=== PATIENT | male | born 1955 | race Caucasian/White ===

== ENCOUNTER 2019-07-13 12:54 | Emergency (ER) | payer OTHER, SELFPAY ==
[2019-07-13 12:55] VITALS: BP 135/101; PULSE 103; RESP 18; TEMP 36.6; O2SAT 96; BMI 43.0
--- NOTE | 2019-07-13 13:04 | XR_ITS ---
WS: [id number] PORTABLE CHEST HISTORY: syncope COMPARISON: 11/02/2015 Chronic interstitial thickening bilaterally. Partial obscuration of the LEFT hemidiaphragm due to ove rlying soft tissue. Stable ill-defined nodule measuring 10 mm in the RIGHT lower lung field. Seen on a prior CT and chest radiograph from 2016 with no progression. No pleural effusion or pneumothorax. Cardiac size: Moderately enlarged cardiac silhouette. Mediastinum/Aorta: Mild atherosclerosis aorta. No osseous abnormality seen. XR/XR chest 1V portable [id number] IMPRESSION: 1. Mild cardiomegaly and stable RIGHT lung nodules since 2016. 2. Partial obscuration of the LEFT lower lobe is thought to be related to over lying soft tissue and portable technique.
--- NOTE | 2019-07-13 13:05 | ECG_ITS ---
Measurements Intervals [place] Rate: 85 P: 66 NY: 152 QRS: 152 QRSD: 106 T: 51 QT: 367 QTc: 437 SINUS RHYTHM INCOMPLETE RIGHT BUNDLE BRANCH BLOCK [90+ ms QRS DURATION, TERMINAL R IN V1/V2, 40+ ms S IN I/aVL/V4/V5/V6] POSSIBLE RIGHT VENTRICULAR HYPERTROPHY [SOME/ALL OF: PROMINENT R IN V1, LATE TR TRANSITION, RAD, GABRIEL, SSS] No previous ECG available for comparison Electronically Signed On 07-13-2019 18:10:23 CDT by Dianne Rodriguez M.D. [id number]
--- NOTE | 2019-07-13 13:06 | W.ED.DIZZY ---
HPI - Dizziness General: Chief Complaint: Dizziness Stated Complaint: ? Time Seen by Provider: 07/13/19 13:02 History of Present Illness: Associated symptoms: Reports syncope Review of Systems General: Reports: 10 or more systems reviewed and unremarkable except in HPI and below Card: Reports: syncope PFSH ED PFSH: Social History Smoking and tobacco status: current every day smoker Physical Exam Const: COMMON NORMALS: oriented x3 and alert HENMT: COMMON NORMALS: normocephalic and head/scalp atraumatic HEAD & SCALP: normocephalic and atraumatic MOUTH: moist mucous membranes not abnormal Neck/C-Spine: COMMON NORMALS: no JVD Resp: COMMON NORMALS: normal respiratory effort, no retractions, no use of accessory muscles and clear to auscultation bilaterally AUSCULTATION: clear to auscultation bilaterally Cardio: COMMON NORMALS: no JVD, regular rate and regular rhythm RATE: regular rate RHYTHM: regular rhythm GI: COMMON NORMALS: normal to inspection, nondistended, normoactive bowel sounds Extremity: COMMON NORMALS: normal to inspection Neuro: COMMON NORMALS: oriented x3 SENSORIUM/ORIENTATION: Yes alert Skin: COMMON NORMALS: no rashes or lesions noted, no wounds, skin turgor normal, no jaundice and no mottling GENERAL SKIN EXAM: no rashes or lesions noted and turgor normal Course Vital Signs: Vital signs: Vital Signs Temperature 97.9 F 07/13/19 12:55 Pulse Rate 103 H 07/13/19 12:55 Respiratory Rate 18 07/13/19 12:55 Blood Pressure 135/101 07/13/19 12:55 Pulse Oximetry 96 07/13/19 12:55 MDM - Dizziness Lab Data: Labs: Lab Results 07/13/19 07/13/19 07/13/19 Range/Units 13:17 13:17 13:17 WBC 7.2 (4.0-10.0) 10^3/ uL RBC 5.84 H (4.1-5.3) 10^6/u L Hgb 16.3 (11.7-16.6) g/dL Hct 51.0 (42.0-52.0) % MCV 87.3 (80-94) fL MCH 27.9 L (28.0-34.0) pg MCHC 32.0 (30.0-36.0) g/dL RDW 14.4 (12.1-15.1) % Plt Count 215 (130-400) 10^3/c mm MPV 10.7 H (7.4-10.4) fL Neut % (Auto) 58.8 % Lymph % (Auto) 26.7 % [place] % (Auto) 11.7 % Eos % (Auto) 1.9 % Baso % (Auto) 0.8 % Neut # (Auto) 4.2 (1.8-7.7) 10^3/u L Lymph # (Auto) 1.9 (0.8-4.8) 10^3/u L [place] # (Auto) 0.8 (0.2-0.9) 10^3/u L Eos # (Auto) 0.1 (0.0-0.8) 10^3/u L Baso # (Auto) 0.1 (0.0-0.1) 10^3/u L Nucleated RBC % (a uto) 0 % Nucleated RBCs # 0.0 /100WBC Sodium 136 (136-145) mmol/L Potassium 3.8 (3.5-5.1) mmol/L Chloride 98 (98-107) mmol/L Carbon Dioxide 26 (22-29) mmol/L Anion Gap 15.8 (5-19) BUN 18 (8-23) mg/dL Creatinine 0.9 (0.7-1.2) mg/dL GFR Calculation 85.2 L (90-130) mL/min Glucose 218 H (65-115) mg/dL Calculated Osmolal ity 285 (285-295) mOsm/k g Lactate (0.5-2.2) mmol/L Calcium 9.5 (8.5-10.5) mg/dL Total Bilirubin 0.5 (0.15-1.2) mg/dL AST 24 (0-40) U/L ALT 40 (0-41) U/L Alkaline Phosphata se 65 (40-130) IU/L Troponin T Baselin e 15 (0-15) ng/mL NT-Pro-B Natriuret Pep 52 (0-125) pg/mL Total Protein 6.9 (6.6-8.7) g/dL Albumin 4.0 (3.5-5.2) g/dL Globulin 2.9 (1.3-4.6) g/dL Lipase 23 (13-60) U/L TSH 0.76 (0.27-4.20) uIU/ mL 07/13/19 Range/Units 13:34 WBC (4.0-10.0) 10^3/ uL RBC (4.1-5.3) 10^6/u L Hgb (11.7-16.6) g/dL Hct (42.0-52.0) % MCV (80-94) fL MCH (28.0-34.0) pg MCHC (30.0-36.0) g/dL RDW (12.1-15.1) % Plt Count (130-400) 10^3/c mm MPV (7.4-10.4) fL Neut % (Auto) % Lymph % (Auto) % Sterling % (Auto) % Eos % (Auto) % Baso % (Auto) % Neut # (Auto) (1.8-7.7) 10^3/u L Lymph # (Auto) (0.8-4.8) 10^3/u L Sterling # (Auto) (0.2-0.9) 10^3/u L Eos # (Auto) (0.0-0.8) 10^3/u L Baso # (Auto) (0.0-0.1) 10^3/u L Nucleated RBC % (a uto) % Nucleated RBCs # /100WBC Sodium (136-145) mmol/L Potassium (3.5-5.1) mmol/L Chloride (98-107) mmol/L Carbon Dioxide (22-29) mmol/L Anion Gap (5-19) BUN (8-23) mg/dL Creatinine (0.7-1.2) mg/dL GFR Calculation (90-130) mL/min Glucose (65-115) mg/dL Calculated Osmolal ity (285-295) mOsm/k g Lactate 1.4 (0.5-2.2) mmol/L Calcium (8.5-10.5) mg/dL Total Bilirubin (0.15-1.2) mg/dL AST (0-40) U/L ALT (0-41) U/L Alkaline Phosphata se (40-130) IU/L Troponin T Baselin e (0-15) ng/mL NT-Pro-B Natriuret Pep (0-125) pg/mL Total Protein (6.6-8.7) g/dL Albumin (3.5-5.2) g/dL Globulin (1.3-4.6) g/dL Lipase (13-60) U/L TSH (0.27-4.20) uIU/ mL Discharge Plan Discharge Patient Disposition: Left Against Medical Advice Clinical Impression: Benign paroxysmal positional vertigo Qualifiers: Laterality: unspecified laterality Qualified Code(s): H81.10 - Benign paroxysmal vertigo, unspecified ear Condition: Stable Prescriptions: No Action chlorthalidone 25 mg Tablet 25 mg PO DAILY RF: 0 aspirin 81 mg Tablet,Delayed Release (Dr/Ec) 81 mg PO DAILY RF: 0 Vitamin D3 25 mcg (1,000 unit) Tablet,Chewable 25 mcg PO DAILY RF: 0 Fish Oil 1,000 mg (120 mg-180 mg) Capsule 1 cap PO DAILY RF: 0 Referrals: Stanford Poole DO [Primary Care Provider] - Stand Alone Forms: Against Medical Advice Coding Level of Care Code ED Security Services Manager for Chg Fwd Exam Comprehensive
[2019-07-13 13:24] LABS: Basophils # 0.1 10^3/uL (0.0-0.1); Basophils % 0.8 %; Eosinophils # 0.1 10^3/uL (0.0-0.8); Eosinophils % 1.9 %; Hemoglobin 16.3 g/dL (11.7-16.6); Lymphocytes # 1.9 10^3/uL (0.8-4.8); Lymphocytes % 26.7 %; Mean Corpuscular Hemoglobin 27.9 pg (28.0-34.0); Mean Corpuscular Volume 87.3 fL (80-94); Mean Platelet Volume 10.7 fL (7.4-10.4); Monocytes # 0.8 10^3/uL (0.2-0.9); Monocytes % 11.7 %; Neutrophils # 4.2 10^3/uL (1.8-7.7); Neutrophils % 58.8 %; Nucleated Red Blood Cells % 0 %; Platelet Count 215 10^3/cmm (130-400); Red Blood Count 5.84 10^6/uL (4.1-5.3); Red Cell Distribution Width 14.4 % (12.1-15.1); White Blood Count 7.2 10^3/uL (4.0-10.0)
[2019-07-13] MEDS: sodium chloride 0.9% 500 ML IV (13:40)
[2019-07-13 13:47] LABS: Troponin(5th) Baseline 15 ng/mL (0-15)
[2019-07-13 13:55] LABS: Alanine Aminotransferase 40 U/L (0-41); Alkaline Phosphatase 65 IU/L (40-130); Anion Gap 15.8 (5-19); Aspartate Amino Transferase 24 U/L (0-40); Blood Urea Nitrogen 18 mg/dL (8-23); Calcium 9.5 mg/dL (8.5-10.5); Carbon Dioxide 26 mmol/L (22-29); Chloride 98 mmol/L (98-107); Globulin 2.9 g/dL (1.3-4.6); Glomerular Filtration Rate 85.2 mL/min (90-130); Glucose 218 mg/dL (65-115); Lipase 23 U/L (13-60); NT Pro B Type Natriuretic Pept 52 pg/mL (0-125); Osmolality Calculated 285 mOsm/kg (285-295); Potassium 3.8 mmol/L (3.5-5.1); Sodium 136 mmol/L (136-145); Thyroid Stimulating Hormone 0.76 uIU/mL (0.27-4.20); Total Bilirubin 0.5 mg/dL (0.15-1.2); Total Protein 6.9 g/dL (6.6-8.7)
[2019-07-13 13:56] LABS: Lactate (Lactic Acid level) 1.4 mmol/L (0.5-2.2)
[2019-07-13 15:02] LABS: Add Urine Microscopic? NO
[2019-07-13 15:08] VITALS: RESP 17
[2019-07-13 15:14] LABS: Bilirubin Urine Neg (NEGATIVE); Blood Urine Neg (Negative); Glucose Urine UA 1+ (Normal); Ketones Urine Negative (Negative); Nitrate Urine Negative (Negative); Protein Urine Neg (Negative); Urine Appearance Clear (CLEAR); Urine Color Yellow (Yellow); pH Urine 5 (5-7)
[2019-07-13 15:15] LABS: Leukocyte Esterase Urine Negative (Negative); Urobilinogen Urine Norm (Negative)
== END 2019-07-13 15:07 | disposition left against medical advice (07) ==
PROVIDERS: Emergency Provider Family Medicine; Family Provider Internal Medicine; PCP Internal Medicine
DX: H81.10 Benign paroxysmal vertigo, unspecified ear (principal); Z53.21 Procedure and treatment not carried out due to patient leaving prior to being seen by health care provider; Z79.82 Long term (current) use of aspirin; F17.210 Nicotine dependence, cigarettes, uncomplicated
CPT/HCPCS: 12345; 36415; 71045; 80053; 80500; 81003; 83605; 83690; 83880; 84443; 84484; 85025; 87040; 93005; 96360; 99282; 99283; J7040

== ENCOUNTER 2021-12-22 10:58 | Emergency (ER) | payer OTHER, SELFPAY ==
[2021-12-22 11:00] VITALS: BP 158/94; PULSE 78; RESP 18; TEMP 36.4; O2SAT 94; BMI 41.5
--- NOTE | 2021-12-22 11:12 | ED_ITS ---
HPI - General Adult General: Chief complaint: Head Injury Stated complaint: AMS Time Seen by Provider: 12/22/21 11:11 History of Present Illness: 66-year-old male presents emergency room after a fall. He is going to get an to a semitractor slipped and fell backwards landed on his back hit his head landed on gravel surface. There is a brief loss of consciousness after the fall. Evidently tried to call his daughter but does not remember doing 9 and he called his . He did get up afterwards able to bear weight and got himself back up into the truck. He is complaining of pain in the scapular area as well as pain at the base of the neck extending down in his thoracic spine. Does not have any difficulty breathing he was slightly nauseous after the fall but did not vomit. He is awake alert and oriented in the exam room and able to give a fairly detailed account of what happened. Onset (ago): minute(s) Location: head, neck and back Severity: moderate Quality: sharp Pain Consistency: constant Relieving factors: none Exacerbating factors: none Associated symptoms: Deny chest pain, confusion, cough, diaphoresis, decreased appetite, dyspnea, fevers/chills, headache(s), malaise, nausea, rash, palpitations, seizures, short of breath, syncope, vomiting or weakness Treatments prior to arrival: none Review of Systems Const: Denies: fever(s), chills, malaise or diaphoresis ENMT: Denies: throat pain, ear or mastoid pain, nasal discharge or nasal congestion Card: Denies: chest pain, palpitations or syncope Resp: Denies: dyspnea GI: Denies: abdominal pain, nausea or vomiting : Denies: flank pain, difficulty urinating, dysuria, urinary frequency or urinary urgency Musc: Reports: neck pain and back pain Skin/Breast: Denies: rash Neuro: Denies: headache(s) or confusion PFS ED PFSH: Medical History (Updated 12/22/21 @ 13:41 by Brennan Maloney DO) Hypertension Social History Smoking and tobacco status: current every day smoker Physical Exam Const: GENERAL APPEARANCE: cooperative and comfortable ORIENTATION/CONSCIOUSNESS: Yes awake, Yes oriented to person, Yes oriented to place and Yes oriented to time HENMT: COMMON NORMALS: normocephalic, atraumatic and hearing grossly normal bilaterally HEAD & SCALP: normocephalic and atraumatic Resp: COMMON NORMALS: normal respiratory effort, No retractions, No use of accessory muscles and clear to auscultation bilaterally AUSCULTATION: clear to auscultation bilaterally Cardio: COMMON NORMALS: regular rate, regular rhythm and No murmurs present (Cardio) RATE: regular rate RHYTHM: regular rhythm GI: COMMON NORMALS: Soft to palpation and No hepatosplenomegaly present AUSCULTATION: Yes normoactive bowel sounds PALPATION: Yes Soft to palpation, No Tenderness to palpation present (GI), No Guarding due to palpation present (GI) and Yes No hepatosplenomegaly present Extremity: COMMON NORMALS: normal to inspection, capillary refill normal, no clubbing, cyanosis or edema, no calf tenderness and no pedal edema Neuro: SENSORIUM/ORIENTATION: Yes oriented to person, Yes oriented to place and Yes oriented to time Skin: COMMON NORMALS: no rashes or lesions noted GENERAL SKIN EXAM: no rashes or lesions noted Course Vital Signs: Vital signs: Vital Signs Temperature 97.5 F L 12/22/21 11:00 Pulse Rate 82 12/22/21 13:30 Respiratory Rate 18 12/22/21 13:30 Blood Pressure 158/77 12/22/21 13:30 Pulse Oximetry 88 L 12/22/21 13:30 Oxygen Delivery Me thod 12/22/21 11:00 MDM - General Adult Medical Decision Making Microscopic hematuria but no pain over the CVA region. Reviewed discharge home and recheck urine in few days his primary care doctor off work. Diclofenac as needed recheck has any worsening or changes symptoms. Medical Records I reviewed the patient's medical records. Lab Data I reviewed the patient's lab results. : 12/22/21 11:35 12/22/21 12:28 Radiology Impressions Chest X-Ray 12/22/21 11:12 IMPRESSION: Patchy opacities at the left lung base are nonspecific and may represent pneumonia, scar tissue, and or atelectasis. Cervical Spine CT 12/22/21 11:27 IMPRESSION: There are degenerative changes as described above. No evidence for acute fracture. Head CT 12/22/21 11:27 IMPRESSION: There are senescent changes of the brain as described above. No evidence for large acute ischemic infarction or acute intracranial injury. Lumbar Spine X-Ray 12/22/21 11:39 IMPRESSION: There are degenerative changes as described above. No evidence for acute fracture. Scapula X-Ray 12/22/21 11:39 IMPRESSION: There moderate degenerative changes across the acromioclavicular joint. No evidence for acute fracture. Thoracic Spine X-Ray 12/22/21 11:39 IMPRESSION: 1. There are degenerative changes as described above. No evidence for acute fracture. 2. 5 degree upper thoracic levoscoliosis. Laboratory Results WBC 8.6 10^3/uL (4.0-10.0) 12/22/21 11:35 RBC 5.67 10^6/uL (4.1-5.3) H 12/22/21 11:35 Hgb 16.4 g/dL (11.7-16.6) 12/22/21 11:35 Hct 50.0 % (42.0-52.0) 12/22/21 11:35 MCV 88.2 fl (80-94) 12/22/21 11:35 MCH 28.9 pg (28.0-34.0) 12/22/21 11:35 MCHC 32.8 g/dL (30.0-36.0) 12/22/21 11:35 RDW 14.6 % (12.1-15.1) 12/22/21 11:35 Plt Count 227 10^3/cmm (130-400) 12/22/21 11:35 MPV 11.2 fL (7.4-10.4) H 12/22/21 11:35 Neut % (Auto) 67.2 % 12/22/21 11:35 Lymph % (Auto) 17.5 % 12/22/21 11:35 [place] % (Auto) 12.4 % 12/22/21 11:35 Eos % (Auto) 1.5 % 12/22/21 11:35 Baso % (Auto) 0.8 % 12/22/21 11:35 Neut # (Auto) 5.77 10^3/uL (1.8-7.7) 12/22/21 11:35 Lymph # (Auto) 1.5 10^3/uL (0.8-4.8) 12/22/21 11:35 [place] # (Auto) 1.1 10^3/uL (0.2-0.9) H 12/22/21 11:35 Eos # (Auto) 0.1 10^3/uL (0.0-0.8) 12/22/21 11:35 Baso # (Auto) 0.1 10^3/uL (0.0-0.1) 12/22/21 11:35 Nucleated RBC % (auto) 0 % 12/22/21 11:35 Nucleated RBCs # 0.0 /100WBC 12/22/21 11:35 Sodium 137 mmol/L (136-145) 12/22/21 12:28 Potassium 4.2 mmol/L (3.5-5.1) 12/22/21 12:28 Chloride 100 mmol/L (98-107) 12/22/21 12:28 Carbon Dioxide 29 mmol/L (22-29) 12/22/21 12:28 Anion Gap 12.2 (5-19) 12/22/21 12:28 BUN 22 mg/dL (8-23) 12/22/21 12:28 Creatinine 0.9 mg/dL (0.7-1.2) 12/22/21 12:28 GFR Calculation 84.4 mL/min (90-130) L 12/22/21 12:28 Glucose 137 mg/dL (65-115) H 12/22/21 12:28 Calculated Osmolality 289 mOsm/kg (285-295) 12/22/21 12:28 Lactic Acid 1.1 mmol/L (0.5-2.2) 12/22/21 11:35 Calcium 9.1 mg/dL (8.5-10.5) 12/22/21 12:28 Total Bilirubin 0.5 mg/dL (0.15-1.2) 12/22/21 12:28 AST 21 U/L (0-40) 12/22/21 12:28 ALT 35 U/L (0-41) 12/22/21 12:28 Alkaline Phosphatase 64 U/L (40-130) 12/22/21 12:28 Troponin T Baseline 16 ng/L (0-15) H 12/22/21 11:35 Total Protein 7.1 g/dL (6.6-8.7) 12/22/21 12:28 Albumin 3.7 g/dL (3.5-5.2) 12/22/21 12:28 Globulin 3.4 g/dL (1.3-4.6) 12/22/21 12:28 Urine Color Cancelled 12/22/21 12:50 Urine Appearance Cancelled 12/22/21 12:50 Urine pH Cancelled 12/22/21 12:50 Ur Specific [place] Cancelled 12/22/21 12:50 Urine Protein Cancelled 12/22/21 12:50 Urine Glucose (UA) Cancelled 12/22/21 12:50 Urine Ketones Cancelled 12/22/21 12:50 Urine Blood Cancelled 12/22/21 12:50 Urine Nitrate Cancelled 12/22/21 12:50 Urine Bilirubin Cancelled 12/22/21 12:50 Prot Sulfosalicylic Acd Cancelled 12/22/21 12:50 Urine Urobilinogen Cancelled 12/22/21 12:50 Ur Leukocyte Esterase Cancelled 12/22/21 12:50 Urine RBC 25-40 /hpf (0-2) H 12/22/21 12:45 Urine WBC None /hpf (0-5) 12/22/21 12:45 Ur Squamous Epith Cells None /hpf (0-5) 12/22/21 12:45 Amorphous Sediment Not Reportable 12/22/21 12:45 Urine Bacteria None /hpf (NONE) 12/22/21 12:45 Discharge Plan Discharge Patient Disposition: Home Clinical Impression: Closed head injury, Fall Condition: Stable Prescriptions: New diclofenac sodium 75 mg tablet,delayed release (DR/EC) 75 mg PO Q12H PRN (Reason: pain) Qty: 20 0RF No Action chlorthalidone 25 mg Tablet 25 mg PO DAILY aspirin 81 mg Tablet,Delayed Release (Dr/Ec) 81 mg PO DAILY Vitamin D3 25 mcg (1,000 unit) Tablet,Chewable 25 mcg PO DAILY Fish Oil 1,000 mg (120 mg-180 mg) Capsule 1 cap PO DAILY Discharge Orders: Discharge ED (Routine); Ordered 12/22/21 Ordered By: Brennan Maloney Discharge Diet: Usual diet Discharge Activity: Increase activity as tolerated Patient Instructions: Opioid Safety, Pain Management Activity Restrictions/Additional Instructions: Increase activities as tolerated if any worsening pain or symptoms recheck. Stand Alone Forms: Work/School Release Coding Level of Care Code ED Director Of Casework Department for Chg Fwd Exam Detailed
--- NOTE | 2021-12-22 11:12 | XRR_ITS ---
PROCEDURE INFORMATION: Exam: XR Chest Exam date and time: 12/22/2021 12:05 PM Age: 66 years old Clinical indication: Cough and dyspnea; Additional info: Dyspnea/cough TECHNIQUE: Imaging protocol: Radiologic exam of the chest. Views: 1 view. COMPARISON: CR XR chest 1V portable [id number] 07/13/2019 1:22 PM FINDINGS: Lungs: There are patchy opacities at the left lung base. There are pulmonary parenchymal calcifications consistent with remote granulomatous organism exposure. Pleural spaces: Unremarkable. No pleural effusion. No pneumothorax. Heart/Mediastinum: Unremarkable. No cardiomegaly. Bones/joints: Unremarkable. XR/XR chest 1V portable [id number] IMPRESSION: Patchy opacities at the left lung base are nonspecific and may represent pneumonia, scar tissue, and or atelectasis.
--- NOTE | 2021-12-22 11:13 | ECG_ITS ---
[facility] Test Date: 2021-12-22 Pat Name: Stanford Talavera Sr Department: Room: Gender: Male Pan Puller: : 1955 Requested By: Brennan Davies Order Number: [id number] Luis MD: Bull Crain M.D. Measurements Intervals [place] Rate: 83 P: 49 NY: 128 QRS: 207 QRSD: 107 T: 53 QT: 364 QTc: 430 Interpretive Statements SINUS RHYTHM INDETERMINATE AXIS INCOMPLETE RIGHT BUNDLE BRANCH BLOCK [90+ ms QRS DURATION, TERMINAL R IN V1/V2, 40+ ms S IN I/aVL/V4/V5/V6] Compared to ECG 07/13/2019 13:07:18 Indeterminate axis now present Atrial abnormality no longer present Electronically Signed On 12-22-2021 19:31:52 CDT by Bull Crain M.D. [id number]
--- NOTE | 2021-12-22 11:27 | CTR_ITS ---
PROCEDURE INFORMATION: Exam: CT Head Without Contrast Exam date and time: 12/22/2021 11:56 AM Age: 66 years old Clinical indication: Injury or trauma; Fall; Concussion/head injury;Loss of consciousness for 30 minutes or less TECHNIQUE: Imaging protocol: Computed tomography of the head without contrast. Radiation optimization: All CT scans at this facility use at least one of these dose optimization techniques: automated exposure control; mA and/or kV adjustment per patient size (includes targeted exams where dose is matched to clinical indication); or iterative reconstruction. COMPARISON: No relevant prior studies available. RADIATION DOSE METRICS: Total DLP (mGy-cm): 1176.01 FINDINGS: Brain: There is mild diffuse cerebral atrophy present, consistent with this patient's age. Periventricular and subcortical white matter low densities are present which at this age likely represent microvascular ischemic change. No evidence for large acute ischemic infarction. Please note acute ischemia can be occult by head CT. No evidence for acute intracranial hemorrhage. Calcified plaque is present within the intracranial vasculature. Cerebral ventricles: No ventriculomegaly. Paranasal sinuses: Visualized sinuses are unremarkable. No fluid levels. Mastoid air cells: Visualized mastoid air cells are well aerated. Bones/joints: Unremarkable. No acute fracture. Soft tissues: Unremarkable. CT/CT head wo con* [id number] IMPRESSION: There are senescent changes of the brain as described above. No evidence for large acute ischemic infarction or acute intracranial injury.
--- NOTE | 2021-12-22 11:27 | CTR_ITS ---
PROCEDURE INFORMATION: Exam: CT Cervical Spine Without Contrast Exam date and time: 12/22/2021 11:56 AM Age: 66 years old Clinical indication: Injury or trauma; Fall; Blunt trauma TECHNIQUE: Imaging protocol: Computed tomography of the cervical spine without contrast. Radiation optimization: All CT scans at this facility use at least one of these dose optimization techniques: automated exposure control; mA and/or kV adjustment per patient size (includes targeted exams where dose is matched to clinical indication); or iterative reconstruction. COMPARISON: CT chest wo con [id number] 11/17/2015 4:15 PM RADIATION DOSE METRICS: Total DLP (mGy-cm): 338.1 FINDINGS: Bones/joints: There are degenerative changes throughout the visualized spine including marginal osteophyte formations, endplate degenerative changes, and facet arthropathy. Multilevel disc space narrowing. There are multilevel broad-based disc osteophyte complexes which indent the anterior thecal sac and result in varying degrees of bilateral neuroforamina narrowing. Lungs: There emphysematous changes at the lung apices. Soft tissues: There are benign-appearing soft tissue calcifications. CT/CT cervical spin wo con* [id number] IMPRESSION: There are degenerative changes as described above. No evidence for acute fracture.
--- NOTE | 2021-12-22 11:39 | XRR_ITS ---
PROCEDURE INFORMATION: Exam: XR Lumbosacral Spine Exam date and time: 12/22/2021 12:11 PM Age: 66 years old Clinical indication: Injury or trauma; Fall; Blunt trauma (contusions or hematomas) TECHNIQUE: Imaging protocol: Radiologic exam of the lumbosacral spine. Views: 2 or 3 views. COMPARISON: No relevant prior studies available. FINDINGS: Bones/joints: Multilevel marginal osteophyte formations and facet arthropathy. Soft tissues: Unremarkable. Vasculature: There is calcified plaque in the aorta and iliac arteries. XR/XR lumbar spine 2-3V* [id number] IMPRESSION: There are degenerative changes as described above. No evidence for acute fracture.
--- NOTE | 2021-12-22 11:39 | XRR_ITS ---
PROCEDURE INFORMATION: Exam: XR Right Scapula Exam date and time: 12/22/2021 12:07 PM Age: 66 years old Clinical indication: Injury or trauma; Fall; Blunt trauma (contusions or hematomas); Shoulder; Right; Additional info: Pain TECHNIQUE: Imaging protocol: Radiologic exam of the Right scapula. Complete exam. COMPARISON: CR (CHEST, ) 12/22/2021 12:05 PM FINDINGS: Bones/joints: There are moderate degenerative changes across the acromioclavicular joint. No evidence for acute fracture. Soft tissues: Normal. XR/[place] [id number] IMPRESSION: There moderate degenerative changes across the acromioclavicular joint. No evidence for acute fracture.
--- NOTE | 2021-12-22 11:39 | XRR_ITS ---
PROCEDURE INFORMATION: Exam: XR Left Scapula Exam date and time: 12/22/2021 12:09 PM Age: 66 years old Clinical indication: Injury or trauma; Fall; Blunt trauma (contusions or hematomas); Shoulder; Left; Additional info: Pain TECHNIQUE: Imaging protocol: Radiologic exam of the Left scapula. Complete exam. COMPARISON: CR (CHEST, ) 12/22/2021 12:05 PM FINDINGS: Bones/joints: Normal. Soft tissues: Normal. XR/[place] [id number] IMPRESSION: No acute findings.
--- NOTE | 2021-12-22 11:39 | XRR_ITS ---
PROCEDURE INFORMATION: Exam: XR Thoracic Spine Exam date and time: 12/22/2021 12:11 PM Age: 66 years old Clinical indication: Injury or trauma; Fall; Blunt trauma (contusions or hematomas) TECHNIQUE: Imaging protocol: Radiologic exam of the thoracic spine. Views: 3 views. COMPARISON: CR (CHEST, ) 12/22/2021 12:09 PM FINDINGS: Bones/joints: 5 degree upper thoracic levoscoliosis. Multilevel marginal osteophyte formations and moderate facet arthropathy. No evidence for acute fracture. Multilevel disc space narrowing. Soft tissues: Unremarkable. XR/XR thoracic spine 3V* [id number] IMPRESSION: 1. There are degenerative changes as described above. No evidence for acute fracture. 2. 5 degree upper thoracic levoscoliosis.
[2021-12-22 11:50] LABS: Basophils # 0.1 10^3/uL (0.0-0.1); Basophils % 0.8 %; Eosinophils # 0.1 10^3/uL (0.0-0.8); Eosinophils % 1.5 %; Hemoglobin 16.4 g/dL (11.7-16.6); Lymphocytes # 1.5 10^3/uL (0.8-4.8); Lymphocytes % 17.5 %; Mean Corpuscular HGB Conc 32.8 g/dL (30.0-36.0); Mean Corpuscular Hemoglobin 28.9 pg (28.0-34.0); Mean Corpuscular Volume 88.2 fl (80-94); Mean Platelet Volume 11.2 fL (7.4-10.4); Monocytes # 1.1 10^3/uL (0.2-0.9); Monocytes % 12.4 %; Neutrophils # 5.77 10^3/uL (1.8-7.7); Neutrophils % 67.2 %; Nucleated Red Blood Cells % 0 %; Platelet Count 227 10^3/cmm (130-400); Red Blood Count 5.67 10^6/uL (4.1-5.3); Red Cell Distribution Width 14.6 % (12.1-15.1); White Blood Count 8.6 10^3/uL (4.0-10.0)
[2021-12-22 12:04] LABS: Lactic Sepsis W/Reflex 1.1 mmol/L (0.5-2.2)
[2021-12-22 12:06] LABS: Troponin(5th) Baseline 16 ng/L (0-15)
[2021-12-22 12:23] VITALS: O2SAT 94
[2021-12-22 12:30] VITALS: O2SAT 94
[2021-12-22 12:54] LABS: Alanine Aminotransferase 35 U/L (0-41); Albumin Level 3.7 g/dL (3.5-5.2); Alkaline Phosphatase 64 U/L (40-130); Anion Gap 12.2 (5-19); Aspartate Amino Transferase 21 U/L (0-40); Blood Urea Nitrogen 22 mg/dL (8-23); Calcium 9.1 mg/dL (8.5-10.5); Carbon Dioxide 29 mmol/L (22-29); Chloride 100 mmol/L (98-107); Globulin 3.4 g/dL (1.3-4.6); Glomerular Filtration Rate 84.4 mL/min (90-130); Glucose 137 mg/dL (65-115); Osmolality Calculated 289 mOsm/kg (285-295); Potassium 4.2 mmol/L (3.5-5.1); Sodium 137 mmol/L (136-145); Total Bilirubin 0.5 mg/dL (0.15-1.2); Total Protein 7.1 g/dL (6.6-8.7)
[2021-12-22 13:00] VITALS: BP 151/83; PULSE 83; RESP 13; O2SAT 91
--- NOTE | 2021-12-22 13:04 | ECG_ITS ---
[facility] Test Date: 2021-12-22 Pat Name: Stanford Talavera Sr Department: Room: Gender: Male Care Rep: : 1955 Requested By: Brennan Davies Order Number: [id number] Luis MD: Bull Crain M.D. Measurements Intervals [place] Rate: 84 P: 59 CO: 144 QRS: 219 QRSD: 111 T: 58 QT: 374 QTc: 443 Interpretive Statements SINUS RHYTHM INCOMPLETE RIGHT BUNDLE BRANCH BLOCK [90+ ms QRS DURATION, TERMINAL R IN V1/V2, 40+ ms S IN I/aVL/V4/V5/V6] POSSIBLE RIGHT VENTRICULAR HYPERTROPHY [SOME/ALL OF: PROMINENT R IN V1, LATE TRANSITION, RAD, GABRIEL, SSS] Compared to ECG 12/22/2021 11:34:51 Indeterminate axis no longer present Electronically Signed On 12-22-2021 19:39:22 CDT by Bull Crain M.D. [id number]
[2021-12-22 13:30] VITALS: BP 158/77; PULSE 82; RESP 18; O2SAT 88
[2021-12-22 13:41] LABS: Add Urine Microscopic? YES; Bilirubin Urine Neg (Negative); Blood Urine 3+ (Negative); Glucose Urine UA Norm (Normal); Ketones Urine Negative (Negative); Leukocyte Esterase Urine Negative (Negative); Nitrate Urine Negative (Negative); Protein Urine Neg (Negative); Urine Appearance Clear (CLEAR); Urine Color Yellow (Yellow); Urobilinogen Urine 1 mg/dL (Negative); pH Urine 7 (5-7)
[2021-12-22 13:50] LABS: Add Urine Culture? No; RBC Urine 25-40 /hpf (0-2)
== END 2021-12-22 13:48 | disposition home or self-care (01) ==
PROVIDERS: Emergency Provider Family Medicine
DX: S09.8XXA Other specified injuries of head, initial encounter (principal); Z79.82 Long term (current) use of aspirin; I10 Essential (primary) hypertension; F17.210 Nicotine dependence, cigarettes, uncomplicated; W01.198A Fall on same level from slipping, tripping and stumbling with subsequent striking against other object, initial encounter
CPT/HCPCS: 36415; 70450; 71045; 72072; 72100; 72125; 73010; 80053; 81001; 83605; 84484; 85025; 93005; 99285

== ENCOUNTER 2022-05-24 12:04 | Emergency (ER) | payer OTHER, SELFPAY ==
--- NOTE | 2022-05-24 12:10 | XR_ITS ---
WS: [id number] Right knee, 3 views, 05/24/2022 Clinical Data: right knee pain Comparison: None. Findings: No fractures or dislocations are seen. The joint spaces are normal. The patella is intact. The soft t issues are unremarkable. XR/XR knee RT 3V* [id number] Impression: Negative right knee. Kellgren-Lester Classification: grade 0 (none): definite absence of x-ray clementine nges of osteoarthritis
[2022-05-24 12:28] VITALS: BP 136/80; PULSE 103; RESP 18; TEMP 36.8; O2SAT 95
--- NOTE | 2022-05-24 13:22 | ED_ITS ---
HPI - Extremity Problem General: Chief complaint: Extremity Injury, Lower Stated complaint: right knee pain Time Seen by Provider: 05/24/22 12:55 History of Present Illness: Patient is a 66-year-old male who comes to the ED with right knee pain. Symptoms started approximately 10 days ago. 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 He woke up 1 morning and noticed that his right knee appeared swollen. Endorses pain at the back of the knee and front of knee. Denies any known injury or trauma to cause knee pain. He has never had any blood clots or DVT in the past. Patient is not on a blood thinner. Denies any chest pain, shortness of breath or hemoptysis. Associated symptoms: Deny chest pain, fever(s) or rash Review of Systems Const: Denies: fever(s), chills or fatigue Eyes: Denies: change in vision or eye discomfort ENMT: Denies: throat pain, odynophagia, nasal discharge or nasal congestion Card: Denies: chest pain, palpitations, edema, swelling of feet/ankles, dyspnea on exertion or orthopnea Resp: Denies: dyspnea, productive cough or non-productive cough GI: Denies: abdominal pain, nausea, vomiting, diarrhea, constipation or hematochezia : Denies: flank pain, difficulty urinating, dysuria or hematuria Musc: Reports: extremity pain (Right knee) and extremity swelling (Right knee); Denies: neck pain or back pain Skin/Breast: Denies: rash or new lesions Neuro: Denies: headache(s), numbness in extremities or weakness in extremities [facility] ED PFSH: Medical History Hypertension No pertinent family history Social History Smoking and tobacco status: current every day smoker Physical Exam Const: COMMON NORMALS: no acute distress, patient oriented x3 and alert GENERAL APPEARANCE: cooperative HENMT: COMMON NORMALS: normocephalic HEAD & SCALP: normocephalic MOUTH: Normal oral and palatal mucosa present THROAT: posterior oropharynx normal and uvula midline Neck/C-Spine: COMMON NORMALS: supple GENERAL: Yes normal visual inspection Resp: COMMON NORMALS: normal respiratory effort, No retractions, No use of accessory muscles and clear to auscultation bilaterally AUSCULTATION: clear to auscultation bilaterally Cardio: COMMON NORMALS: regular rate, regular rhythm, S1 normal heart sound present, S2 normal heart sound present, No gallops present (Cardio), No clicks present (Cardio), No murmurs present (Cardio) and Peripheral pulses 2+ throughout RATE: regular rate RHYTHM: regular rhythm HEART SOUNDS: S1 normal heart sound present and S2 normal heart sound present PERIPHERAL PULSES: Peripheral pulses 2+ throughout GI: COMMON NORMALS: Normal to inspection, nondistended, normoactive bowel sounds present, Soft to palpation, non-tender and no masses PALPATION: Yes Soft to palpation : COMMON NORMALS: Yes no CVA tenderness BLADDER/KIDNEY EXAM: Yes no CVA tenderness Back/Pelvis: COMMON NORMALS: no CVA tenderness Extremity: NARRATIVE EXTREMITY EXAM: Mild edema around right knee. Tenderness of posterior aspect of right knee. No calf tenderness. Neuro: COMMON NORMALS: patient oriented x3 SENSORIUM/ORIENTATION: Yes alert GAIT: Yes Normal gait present Skin: GENERAL SKIN EXAM: dry skin Course Vital Signs: Vital signs: Vital Signs Temperature 98.3 F 05/24/22 12:28 Pulse Rate 103 H 05/24/22 12:28 Respiratory Rate 18 05/24/22 12:28 Blood Pressure 136/80 05/24/22 12:28 Pulse Oximetry 95 05/24/22 12:28 Oxygen Delivery Me thod 05/24/22 12:28 MDM - Extremity (Nontraumatic) Medical Decision Making Patient is a 66-year-old male who comes to the ED with right knee pain. Symptoms started approximately 10 days ago. 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 He woke up 1 morning and noticed that his right knee appeared swollen. Endorses pain at the back of the knee and front of knee. Denies any known injury or trauma to cause knee pain. He has never had any blood clots or DVT in the past. Patient is not on a blood thinner. Denies any chest pain, shortness of breath or hemoptysis. Vitals are stable. Patient has some right knee swelling and tenderness behind the knee. No calf tenderness. Right knee x-ray showed no acute findings. Ultrasound venous duplex of right lower extremity showed no DVTs, but noted Easton's cyst of the knee. Patient was diagnosed with Easton's cyst of right knee and was stable for discharge home. Told to follow-up with his PCP within the next week for reevaluation. Wrap knee and Ryne bandage to help with the swelling. Rest, ice and elevate right knee. Patient understood and agreed with plan. Lab Data Radiology Impressions Knee X-Ray 05/24/22 12:10 Impression: Negative right knee. Kellgren-Lester Classification: grade 0 (none): definite absence of x-ray changes of osteoarthritis Discharge Plan Discharge Patient Disposition: Home Clinical Impression: Easton's cyst of knee Qualifiers: Laterality: right Qualified Code(s): M71.21 - Synovial cyst of popliteal space [Easton], right knee Condition: Stable Prescriptions: No Action chlorthalidone 25 mg Tablet 25 mg PO DAILY aspirin 81 mg Tablet,Delayed Release (Dr/Ec) 81 mg PO DAILY Vitamin D3 25 mcg (1,000 unit) Tablet,Chewable 25 mcg PO DAILY Fish Oil 1,000 mg (120 mg-180 mg) Capsule 1 cap PO DAILY diclofenac sodium 75 mg tablet,delayed release (DR/EC) 75 mg PO Q12H PRN (Reason: pain) Qty: 20 0RF Discharge Orders: Discharge ED (Routine); Ordered 05/24/22 Ordered By: Desmond Alford Referrals: Nerissa Ryder FNP [Primary Care Provider] - Discharge Diet: Regular Discharge Activity: Increase activity as tolerated Patient Instructions: Easton Cyst (ED) Activity Restrictions/Additional Instructions: Follow-up with medical provider as directed in the next 7 to 10 days for reevaluation. Rest, ice and elevate right leg to help with symptoms. You can Ryne wrap the knee to help with swelling as well. Return to the ER or your medical provider if condition worsens. Please read and understand discharge instructions. Thank you for choosing [facility] for your healthcare needs today. Please realize this is an emergency room and that we are providing you with a medical screening exam and this may not be complete and all inclusive of all the testing and or work up that you may need to determine your ailment or severity of your illness. It is very important that you follow up as instructed or that you return to the Emergency Department should you have concerns or if your condition changes or worsens in any way. Coding Level of Care Code ED Mathematical Statistician for Claudette Millard
--- NOTE | 2022-05-24 13:22 | USCV_ITS ---
Head Stanford Mathis Age: 66 Gender: M : 1955 Exam Date: 05/24/2022 14:07 Ordering Phys: Desmond Alford Technologist: CLEMENCIA Exam Location: [facility]_ Indication: rt knee pain. rt lower extemity swelling FINDINGS: No evidence of dvt identified. right popliteal has a anechoic area. no identifiable blood flow. CONCLUSIONS No evidence of right lower extremity DVT. 5.6 x 0.9 x 1.6cm popliteal cyst right popliteal fossa Mansoor Malone MD (Electronically Signed) Final Date: 24 May 2022 14:45 S
== END 2022-05-24 13:08 | disposition home or self-care (01) ==
PROVIDERS: Emergency Provider Physician Assistant; PCP Nurse Practitioner
DX: M71.21 Synovial cyst of popliteal space [Baker], right knee (principal); F17.200 Nicotine dependence, unspecified, uncomplicated
CPT/HCPCS: 73562; 93971; 99284

== ENCOUNTER 2023-08-07 12:54 | Emergency (ER) | payer OTHER, SELFPAY ==
[2023-08-07 12:55] VITALS: BP 131/85; PULSE 86; RESP 17; TEMP 36.6; O2SAT 93; BMI 43.7
--- NOTE | 2023-08-07 13:58 | CT_ITS ---
WS: [id number] CT HEAD NONCONTRAST HISTORY: closed head injury TECHNIQUE: Contiguous axial imaging performed through the brain in 2.5 mm imaging. Bone and soft tiss ue windows. Sagittal and coronal reformats reviewed. All CT scans at [facility] use at least one of these dose optimization techniques: automated exposure control; mA and/or kV adjustment per pa tient size (includes targeted exams where dose is matched to clinical indication); or iterative recon struction. DLP: 1109.38 mGy.cm COMPARISON: 12/22/2021 No acute intracranial hemorrhage, midline shift or mass effect. Mild atrophy. No acute blood. No prior infarct. Ventricles: Normal size with no hydrocephalus. No inferior displacement the cerebellar tonsils. Paranasal sinuses: As visualized are clear. Mastoid air cells: Well pneumatized. Calvarium and scalp: No fracture. There is a very minimal erythema over the posterior RIGHT frontal s calp. No large scalp hematoma. CT/CT head wo con* [id number] IMPRESSION: 1. No acute intracranial hemorrhage or edema. No prior infarct. 2. Minimal scalp erythema over the posterior RIGHT frontal bone. 3. No skull fracture.
--- NOTE | 2023-08-07 14:00 | W.ED.HEATRA ---
HPI - Head Injury General: Chief complaint: Head Injury Stated complaint: hit head/ Headache Time Seen by Provider: 08/07/23 13:58 Source: patient Mode of arrival: ambulatory History of Present Illness: 60-year-old male presents emergency room with complaint of headache. 3 days ago he was loading a trailer he was turning the crank on the trailer carlos, while he was leaning over to line things up crank came loose and swung back around and hit him in the side of the head. It did stone him for several minutes he had no loss consciousness no vomiting. No other injury. Still has a bit of a headache and nausea. MD Complaint: head injury Onset (ago): day(s) (3) Mechanism of Injury: work related injury Place: home Loss of Consciousness: no Location of injury: occipital Severity: mild Quality: throbbing Other Injuries: none Associated symptoms: Deny amnesia, confusion, nausea, neck pain, numbness, syncope, tingling, vertigo, visual changes, vomiting or weakness Review of Systems Const: Denies: fever(s) or chills Card: Denies: chest pain or syncope Resp: Denies: dyspnea GI: Denies: abdominal pain, nausea or vomiting : Denies: flank pain, dysuria, urinary frequency or urinary urgency Musc: Denies: neck pain or back pain Skin/Breast: Denies: rash Neuro: Reports: headache(s); Denies: vertigo or confusion [facility] ED PFSH: Medical History No pertinent family history Hypertension Social History Smoking and tobacco/nicotine status: current every day tobacco/nicotine user Physical Exam Const: GENERAL APPEARANCE: cooperative and comfortable ORIENTATION/CONSCIOUSNESS: Yes awake, Yes oriented to person, Yes oriented to place and Yes oriented to time HENMT: COMMON NORMALS: normocephalic, atraumatic and hearing grossly normal bilaterally HEAD & SCALP: normocephalic and atraumatic Resp: COMMON NORMALS: normal respiratory effort, No retractions, No use of accessory muscles and clear to auscultation bilaterally AUSCULTATION: clear to auscultation bilaterally Cardio: COMMON NORMALS: regular rate, regular rhythm and No murmurs present (Cardio) RATE: regular rate RHYTHM: regular rhythm GI: COMMON NORMALS: Soft to palpation and No hepatosplenomegaly present AUSCULTATION: Yes normoactive bowel sounds PALPATION: Yes Soft to palpation, No Tenderness to palpation present (GI), No Guarding due to palpation present (GI) and Yes No hepatosplenomegaly present Extremity: COMMON NORMALS: normal to inspection, capillary refill normal, no clubbing, cyanosis or edema, no calf tenderness and no pedal edema Neuro: SENSORIUM/ORIENTATION: Yes oriented to person, Yes oriented to place and Yes oriented to time Skin: COMMON NORMALS: no rashes or lesions noted GENERAL SKIN EXAM: no rashes or lesions noted Course Vital Signs: Vital signs: Vital Signs Temperature 97.9 F 08/07/23 12:55 Pulse Rate 98 08/07/23 15:41 Respiratory Rate 17 08/07/23 12:55 Blood Pressure 151/98 08/07/23 15:41 Pulse Oximetry 97 08/07/23 15:41 Oxygen Delivery Me thod Room Air 08/07/23 15:41 MDM - Head Injury Medcial Decision Making Mild concussion CT of the head did not show any acute bleed or cranial fracture. Will discharge patient home close head injury precautions and can follow-up with primary care as needed. Medical Records I reviewed the patient's medical records. Lab Data I reviewed the patient's lab results. 08/07/23 14:28 08/07/23 14:[address] 08/07/23 13:58 IMPRESSION: 1. No acute intracranial hemorrhage or edema. No prior infarct. 2. Minimal scalp erythema over the posterior RIGHT frontal bone. 3. No skull fracture. Laboratory Results WBC 7.23 10^3/uL (3.29-11.43) 08/07/23 14:28 RBC 5.73 10^6/uL (3.85-5.65) H 08/07/23 14:28 Hgb 16.40 g/dL (11.27-16.99) 08/07/23 14:28 Hct 50.2 % (37-53) 08/07/23 14:28 MCV 87.6 fl (82-101) 08/07/23 14: MCH 28.6 pg (27-33) 08/07/23 14:28 MCHC 32.7 g/dL (30-55) 08/07/23 14:28 RDW 15.0 % (12.1-15.1) 08/07/23 14:28 Plt Count 242 10^3/cmm (157-399) 08/07/23 14:28 MPV 11.0 fL (7.4-10.4) H 08/07/23 14:28 Neut % (Auto) 52.7 % 08/07/23 14:28 Lymph % (Auto) 30.8 % 08/07/23 14:28 Harper % (Auto) 12.7 % 08/07/23 14:28 Eos % (Auto) 2.4 % 08/07/23 14:28 Baso % (Auto) 1.0 % 08/07/23 14:28 Neut # (Auto) 3.81 10^3/uL (1.8-7.7) 08/07/23 14:28 Lymph # (Auto) 2.2 10^3/uL (0.8-4.8) 08/07/23 14:28 Harper # (Auto) 0.9 10^3/uL (0.2-0.9) 08/07/23 14:28 Eos # (Auto) 0.2 10^3/uL (0.0-0.8) 08/07/23 14:28 Baso # (Auto) 0.1 10^3/uL (0.0-0.1) 08/07/23 14:28 Nucleated RBC % (auto) 0 % 08/07/23 14:28 Nucleated RBCs # 0.0 /100WBC 08/07/23 14:28 Sodium 136 mmol/L (136-145) 08/07/23 14:28 Potassium 3.9 mmol/L (3.5-5.1) 08/07/23 14:28 Chloride 101 mmol/L (98-107) 08/07/23 14:28 Carbon Dioxide 25 mmol/L (22-29) 08/07/23 14:28 Anion Gap 13.9 (5-19) 08/07/23 14:28 BUN 20 mg/dL (8-23) 08/07/23 14:28 Creatinine 0.9 mg/dL (0.7-1.2) 08/07/23 14:28 GFR Calculation 83.9 mL/min (90-130) L 08/07/23 14:28 Glucose 124 mg/dL (65-115) H 08/07/23 14:28 Calculated Osmolality 286 mOsm/kg (285-295) 08/07/23 14:28 Calcium 8.8 mg/dL (8.5-10.5) 08/07/23 14:28 Total Bilirubin 0.4 mg/dL (0.15-1.2) 08/07/23 14:28 AST 25 U/L (0-40) 08/07/23 14:28 ALT 26 U/L (0-41) 08/07/23 14:28 Alkaline Phosphatase 69 U/L (40-130) 08/07/23 14:28 Total Protein 7.4 g/dL (6.6-8.7) 08/07/23 14:28 Albumin 3.8 g/dL (3.5-5.2) 08/07/23 14:28 Globulin 3.6 g/dL (1.3-4.6) 08/07/23 14:28 All radiology interpretation(s) finalized by discharge Discharge Plan Discharge Patient Disposition: Home Clinical Impression: Closed head injury Condition: Stable Prescriptions: No Action chlorthalidone 25 mg Tablet 25 mg PO DAILY aspirin 81 mg Tablet,Delayed Release (Dr/Ec) 81 mg PO DAILY Vitamin D3 25 mcg (1,000 unit) Tablet,Chewable 25 mcg PO DAILY Fish Oil 1,000 mg (120 mg-180 mg) Capsule 1 cap PO DAILY diclofenac sodium 75 mg tablet,delayed release (DR/EC) 75 mg PO Q12H PRN (Reason: pain) Qty: 20 0RF Discharge Orders: Discharge ED (Routine); Ordered 08/07/23 Ordered By: Brennan Maloney Referrals: Nerissa Ryder FNP [Primary Care Provider] - Discharge Diet: Usual diet Discharge Activity: Increase activity as tolerated Patient Instructions: Concussion (ED), Opioid Safety, Pain Management Coding Level of Care Code ED Sewing Machine Tester for Claudette Millard
[2023-08-07 14:33] LABS: Basophils # 0.1 10^3/uL (0.0-0.1); Eosinophils # 0.2 10^3/uL (0.0-0.8); Eosinophils % 2.4 %; Hematocrit 50.2 % (37-53); Lymphocytes # 2.2 10^3/uL (0.8-4.8); Lymphocytes % 30.8 %; Mean Corpuscular HGB Conc 32.7 g/dL (30-55); Mean Corpuscular Hemoglobin 28.6 pg (27-33); Mean Corpuscular Volume 87.6 fl (82-101); Monocytes # 0.9 10^3/uL (0.2-0.9); Monocytes % 12.7 %; Neutrophils # 3.81 10^3/uL (1.8-7.7); Neutrophils % 52.7 %; Nucleated Red Blood Cells % 0 %; Platelet Count 242 10^3/cmm (157-399); Red Blood Count 5.73 10^6/uL (3.85-5.65); White Blood Count 7.23 10^3/uL (3.29-11.43)
[2023-08-07 14:50] LABS: Alanine Aminotransferase 26 U/L (0-41); Albumin Level 3.8 g/dL (3.5-5.2); Alkaline Phosphatase 69 U/L (40-130); Blood Urea Nitrogen 20 mg/dL (8-23); Calcium 8.8 mg/dL (8.5-10.5); Carbon Dioxide 25 mmol/L (22-29); Chloride 101 mmol/L (98-107); Creatinine Clr Calc Pharmacy 110.1538; Globulin 3.6 g/dL (1.3-4.6); Glomerular Filtration Rate 83.9 mL/min (90-130); Glucose 124 mg/dL (65-115); Osmolality Calculated 286 mOsm/kg (285-295); Sodium 136 mmol/L (136-145); Total Bilirubin 0.4 mg/dL (0.15-1.2); Total Protein 7.4 g/dL (6.6-8.7)
[2023-08-07 14:54] LABS: Anion Gap 13.9 (5-19); Potassium 3.9 mmol/L (3.5-5.1)
[2023-08-07 14:55] LABS: Aspartate Amino Transferase 25 U/L (0-40)
[2023-08-07 15:41] VITALS: BP 151/98; PULSE 98; O2SAT 97
== END 2023-08-07 15:44 | disposition home or self-care (01) ==
PROVIDERS: Emergency Provider Family Medicine; PCP Nurse Practitioner
DX: S09.8XXA Other specified injuries of head, initial encounter (principal); Z79.82 Long term (current) use of aspirin; I10 Essential (primary) hypertension; Z72.0 Tobacco use; W20.8XXA Other cause of strike by thrown, projected or falling object, initial encounter
CPT/HCPCS: 36415; 70450; 80053; 85025; 99284

== ENCOUNTER 2024-06-08 14:46 | Inpatient (IN) | payer OTHER, MEDICARE, SELFPAY ==
[2024-06-08] VITALS (16 sets, daily range): BP systolic 96–127; BP diastolic 62–80; PULSE 79–96; RESP 16–20; TEMP 36.7–36.8; O2SAT 84–95; BMI 41.3
--- NOTE | 2024-06-08 15:00 | XR_ITS ---
WS: [id number] Exam: XR chest 1V portable [id number] Date/Time of Exam: 06/08/2024 3:00 PM Reason For Exam: sob Comparison 12/22/2021. Chronic bibasilar changes noted. Stable appearing 13 mm nodule in the RIGHT lower lung zone. No consolidated infiltrates. The lungs are fully expanded. Prominent fat pad along the LEFT heart border. Heart size within normal limits. The mediastinum is normal in contour. Bony structures are intact. XR/XR chest 1V portable [id number] IMPRESSION: 1. Chronic bibasilar changes. No acute process is suspected. 2. Stable appearing 13 mm nodule in the RIGHT lower lung zone.
--- NOTE | 2024-06-08 15:01 | ECG_ITS ---
[facility] Date: 2024-[facility]08 Pat Name: Stanford Talavera Sr Department: Room: Gender: Male Editorial Assistant: : 1955 Requested By: José Luis Calvert Order Number: [id number] Luis MD: Bull Crain M.D. Measurements Intervals [place] Rate: 86 P: 59 [place]: 116 QRS: 160 QRSD: 110 T: 34 QT: 370 QTc: 445 Interpretive Statements SINUS RHYTHM WITH SHORT [place] INTERVAL INCOMPLETE RIGHT BUNDLE BRANCH BLOCK [90+ ms QRS DURATION, TERMINAL R IN V1/V2, 40+ ms S IN I/aVL/V4/V5/V6] POSSIBLE RIGHT VENTRICULAR HYPERTROPHY [SOME/ALL OF: PROMINENT R IN V1, LATE TRANSITION, RAD, GABRIEL, SSS] Compared to ECG 12/22/2021 13:04:37 Short [place] interval now present Electronically Signed On 06-09-2024 12:33:14 CDT by Bull Crain M.D. [email or web address]
--- NOTE | 2024-06-08 15:03 | W.ED.SOB ---
HPI - SOB/Dyspnea General: Chief Complaint: Shortness of Breath/Dyspnea Stated Complaint: low 02 levels Time Seen by Provider: 06/08/24 14:56 Source: patient Mode of arrival: ambulatory Limitations: no limitations History of Present Illness: HPI Narrative: 68-year-old male states he has a history of COPD states been having increasing shortness of breath since . He is sent here from the [place] for hypoxia he is quite hypoxic here on room air requiring roughly 6 L of oxygen. He states he had a productive cough along with increased wheezing. He denies any fevers denies any chest pain. Associated symptoms: Deny abdominal pain, chest pain, fever(s), nausea or vomiting Related Data Home Medications ?Medication ?Instructions ?Recorded ?Confirmed aspirin 81 mg tablet,delayed 81 mg PO DAILY 07/13/19 06/08/24 release chlorthalidone 25 mg tablet 25 mg PO DAILY 07/13/19 07/13/19 cholecalciferol (vitamin D3) 25 25 mcg PO DAILY 07/13/19 06/08/24 mcg (1,000 unit) chewable tablet (Vitamin D3) omega 8-suy-tnt-fish oil 1,000 mg 1 cap PO DAILY 07/13/19 06/08/24 (120 mg-180 mg) capsule (Fish Oil) Allergies Allergy/AdvReac Type Severity Reaction Status Date / Time No Known Allergies Allergy Verified 07/13/19 13:02 Review of Systems Const: Denies: fever(s), chills, body aches or change in appetite ENMT: Denies: throat pain or dental pain Card: Denies: chest pain Resp: Reports: dyspnea, productive cough and wheezing GI: Denies: abdominal pain, nausea, vomiting or diarrhea Musc: Denies: neck pain or back pain Skin/Breast: Denies: rash Neuro: Denies: headache(s) PFSH ED PFSH: Medical History No pertinent family history Hypertension Social History Smoking and tobacco/nicotine status: current every day tobacco/nicotine user Physical Exam Const: COMMON NORMALS: patient oriented x3 HENMT: COMMON NORMALS: normocephalic and atraumatic HEAD & SCALP: normocephalic and atraumatic Eye: COMMON NORMALS: conjunctivae normal CONJUNCTIVA: Yes conjunctivae normal Neck/C-Spine: COMMON NORMALS: full ROM and supple Chest: COMMONS NORMALS: normal inspection of the chest Resp: COMMON NORMALS: No retractions and No use of accessory muscles EFFORT & INSPECTION: Yes tachypneic AUSCULTATION: rales and wheezes Cardio: COMMON NORMALS: regular rate, regular rhythm and No murmurs present (Cardio) RATE: regular rate RHYTHM: regular rhythm GI: COMMON NORMALS: Normal to inspection, nondistended, normoactive bowel sounds present, Soft to palpation, non-tender and no masses PALPATION: Yes Soft to palpation Extremity: COMMON NORMALS: normal to inspection and full ROM Neuro: COMMON NORMALS: patient oriented x3, moves all extremities and no focal motor deficits Psych: COMMON NORMALS: mental status grossly normal, Normal thought process present and cooperative THOUGHT PROCESS: Normal thought process present Skin: COMMON NORMALS: no rashes or lesions noted and no wounds GENERAL SKIN EXAM: no rashes or lesions noted Course Vital Signs: Vital signs: Vital Signs Temperature 98.0 F 06/08/24 14:52 Pulse Rate 90 06/08/24 17:15 Respiratory Rate 18 06/08/24 17:15 Blood Pressure 111/79 06/08/24 17:15 Pulse Oximetry 91 06/08/24 17:15 Oxygen Delivery Me thod Nasal Cannula 06/08/24 17:15 Oxygen Flow Rate 4 06/08/24 17:15 MDM - SOB/Dyspnea Medical Decision Making Patient presents here with shortness of breath he did test positive for influenza he is requiring 4 L of oxygen here x-ray showed no pneumonia he refused a CT of his chest I spoke to the hospitalist will admit at this time. Medical Records I reviewed the patient's medical records. Lab Data I reviewed the patient's lab results. 06/08/24 15:05 06/08/24 15:05 Labs/Radiology: Radiology Impressions Chest X-Ray 06/08/24 15:00 IMPRESSION: 1. Chronic bibasilar changes. No acute process is suspected. 2. Stable appearing 13 mm nodule in the RIGHT lower lung zone. Laboratory Results WBC 6.72 10^3/uL (3.29-11.43) 06/08/24 15:05 RBC 5.94 10^6/uL (3.85-5.65) H 06/08/24 15:05 Hgb 16.40 g/dL (11.27-16.99) 06/08/24 15:05 Hct 50.4 % (37-53) 06/08/24 15:05 MCV 84.8 fl (82-101) 06/08/24 15:05 MCH 27.6 pg (27-33) 06/08/24 15:05 MCHC 32.5 g/dL (30-55) 06/08/24 15:05 RDW 14.1 % (12.1-15.1) 06/08/24 15:05 Plt Count 166 10^3/cmm (157-399) 06/08/24 15:05 MPV 10.6 fL (7.4-10.4) H 06/08/24 15:05 Neut % (Auto) 61.7 % 06/08/24 15:05 Lymph % (Auto) 22.0 % 06/08/24 15:05 [place] % (Auto) 15.5 % 06/08/24 15:05 Eos % (Auto) 0.0 % 06/08/24 15:05 Baso % (Auto) 0.4 % 06/08/24 15:05 Neut # (Auto) 4.14 10^3/uL (1.8-7.7) 06/08/24 15:05 Lymph # (Auto) 1.5 10^3/uL (0.8-4.8) 06/08/24 15:05 [place] # (Auto) 1.0 10^3/uL (0.2-0.9) H 06/08/24 15:05 Eos # (Auto) 0.0 10^3/uL (0.0-0.8) 06/08/24 15:05 Baso # (Auto) 0.0 10^3/uL (0.0-0.1) 06/08/24 15:05 Nucleated RBC % (auto) 0 % 06/08/24 15:05 Nucleated RBCs # 0.0 /100WBC 06/08/24 15:05 PT 13.10 SECONDS (12.1-14.9) 06/08/24 15:05 INR 0.93 (0.8-1.2) 06/08/24 15:05 Specimen Type Venous 06/08/24 15:52 Mahendra Test N/a 06/08/24 15:52 VBG pH 7.45 (7.32-7.42) H 06/08/24 15:52 VBG pCO2 46.5 mmHg (41-51) 06/08/24 15:52 VBG pO2 101.0 mmHg (25-40) H 06/08/24 15:52 VBG HCO3 32.2 mmol/L (24-28) H 06/08/24 15:52 VBG Base Excess 6.9 mmol/L (-3.0-3.0) H 06/08/24 15:52 VBG Hematocrit 51.4 % (42-52) 06/08/24 15:52 O2 Delivery Device Nc 06/08/24 15:52 O2 Liters/Min 4.0 % 06/08/24 15:52 Aviation Project Engineer ID [place] 06/08/24 15:52 Sodium 132 mmol/L (136-145) L 06/08/24 15:05 Sodium Cancelled 06/08/24 15:05 Potassium 3.7 mmol/L (3.5-5.1) 06/08/24 15:05 Potassium Cancelled 06/08/24 15:05 Chloride 93 mmol/L (98-107) L 06/08/24 15:05 Chloride Cancelled 06/08/24 15:05 Carbon Dioxide 27 mmol/L (22-29) 06/08/24 15:05 Carbon Dioxide Cancelled 06/08/24 15:05 Anion Gap 15.7 (5-19) 06/08/24 15:05 Anion Gap Cancelled 06/08/24 15:05 BUN 15 mg/dL (8-23) 06/08/24 15:05 BUN Cancelled 06/08/24 15:05 Creatinine 0.9 mg/dL (0.7-1.2) 06/08/24 15:05 Creatinine Cancelled 06/08/24 15:05 GFR Calculation 83.9 mL/min (90-130) L 06/08/24 15:05 GFR Calculation Cancelled 06/08/24 15:05 Glucose 127 mg/dL (65-115) H 06/08/24 15:05 Glucose Cancelled 06/08/24 15:05 Calculated Osmolality 276 mOsm/kg (285-295) L 06/08/24 15:05 Calculated Osmolality Cancelled 06/08/24 15:05 Calcium 8.3 mg/dL (8.5-10.5) L 06/08/24 15:05 Calcium Cancelled 06/08/24 15:05 Total Bilirubin 0.5 mg/dL (0.15-1.2) 06/08/24 15:05 Total Bilirubin Cancelled 06/08/24 15:05 AST 55 U/L (0-40) H 06/08/24 15:05 AST Cancelled 06/08/24 15:05 ALT 33 U/L (0-41) 06/08/24 15:05 ALT Cancelled 06/08/24 15:05 Alkaline Phosphatase 45 U/L (40-130) 06/08/24 15:05 Alkaline Phosphatase Cancelled 06/08/24 15:05 Troponin T Baseline 23 ng/L (0-15) H 06/08/24 15:05 Troponin T 120 Minute 19.89 ng/L (0-15) H 06/08/24 16:58 Delta Troponin T -3.11 ABS# (0-10) L 06/08/24 16:58 NT-Pro-B Natriuret Pep 113 pg/mL (0-125) 06/08/24 15:05 NT-Pro-B Natriuret Pep Cancelled 06/08/24 15:05 Total Protein 7.0 g/dL (6.6-8.7) 06/08/24 15:05 Total Protein Cancelled 06/08/24 15:05 Albumin 3.5 g/dL (3.5-5.2) 06/08/24 15:05 Albumin Cancelled 06/08/24 15:05 Globulin 3.5 g/dL (1.3-4.6) 06/08/24 15:05 Globulin Cancelled 06/08/24 15:05 Influenza A (PCR) Positive (Negative) 06/08/24 15:25 Influenza Type B (PCR) Negative (Negative) 06/08/24 15:25 RSV (PCR) Negative (Negative) 06/08/24 15:25 SARS-CoV-2 (PCR) Negative (Negative) 06/08/24 15:25 All radiology interpretation(s) finalized by discharge EKG Data EKG 1: I personally reviewed and interpreted this EKG as follows: EKG Interpretation Date: 06/08/24 EKG interpretation time: 15:01 Interpretation: nsr hr [address] elevation qrs 110 qtc 414 EKG 2: I personally reviewed and interpreted this EKG as follows: EKG Interpretation Date: 06/08/24 EKG interpretation time: 17:00 Interpretation: nsr hr [address] elevation qrs 110 qtc 411 Discharge Plan Discharge Patient Disposition: Admitted As Inpatient Clinical Impression: Acute respiratory failure with hypoxia, Influenza Condition: Stable Coding Level of Care Code ED Knitting Machine Tender for Claudette Millard
[2024-06-08 15:22] LABS: Basophils % 0.4 %; Hematocrit 50.4 % (37-53); Lymphocytes # 1.5 10^3/uL (0.8-4.8); Mean Corpuscular HGB Conc 32.5 g/dL (30-55); Mean Corpuscular Hemoglobin 27.6 pg (27-33); Mean Corpuscular Volume 84.8 fl (82-101); Mean Platelet Volume 10.6 fL (7.4-10.4); Monocytes % 15.5 %; Neutrophils # 4.14 10^3/uL (1.8-7.7); Neutrophils % 61.7 %; Nucleated Red Blood Cells % 0 %; Platelet Count 166 10^3/cmm (157-399); Red Blood Count 5.94 10^6/uL (3.85-5.65); Red Cell Distribution Width 14.1 % (12.1-15.1); White Blood Count 6.72 10^3/uL (3.29-11.43)
[2024-06-08] MEDS: methylPREDNISolone sod succ 125 mg/2 mL INJ IVP (15:27)
[2024-06-08 15:40] LABS: INR 0.93 (0.8-1.2)
[2024-06-08 15:45] LABS: Troponin(5th) Baseline 23 ng/L (0-15)
[2024-06-08] MEDS: ipratropium-albuterol 3 mL Neb INHALATION ×2 (15:49→23:01)
[2024-06-08 15:57] LABS: Base Excess VBG 6.9 mmol/L (-3.0-3.0); Blood Gas Operator Identificat WALCI; Blood Gas Sample Type Venous; HCO3 VBG 32.2 mmol/L (24-28); Oxygen Device NC; PCO2 VBG 46.5 mmHg (41-51); Venous Blood Gas Hematocrit 51.4 % (42-52); pH VBG 7.45 (7.32-7.42)
[2024-06-08 16:06] LABS: Influenza A POSITIVE (Negative); Influenza B NEGATIVE (Negative); Respiratory Syncytial Virus Ce NEGATIVE (Negative); SARS-CoV-2 PCR NEGATIVE (Negative)
[2024-06-08 16:28] LABS: Albumin Level 3.5 g/dL (3.5-5.2); Alkaline Phosphatase 45 U/L (40-130); Blood Urea Nitrogen 15 mg/dL (8-23); Calcium 8.3 mg/dL (8.5-10.5); Carbon Dioxide 27 mmol/L (22-29); Chloride 93 mmol/L (98-107); Creatinine Clr Calc Pharmacy 106.7267; Globulin 3.5 g/dL (1.3-4.6); Glomerular Filtration Rate 83.9 mL/min (90-130); Glucose 127 mg/dL (65-115); NT Pro B Type Natriuretic Pept 113 pg/mL (0-125); Osmolality Calculated 276 mOsm/kg (285-295); Sodium 132 mmol/L (136-145); Total Bilirubin 0.5 mg/dL (0.15-1.2)
[2024-06-08 16:29] LABS: Alanine Aminotransferase 33 U/L (0-41); Anion Gap 15.7 (5-19); Aspartate Amino Transferase 55 U/L (0-40); Potassium 3.7 mmol/L (3.5-5.1)
--- NOTE | 2024-06-08 17:00 | ECG_ITS ---
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 Measurements Intervals [place] Rate: 87 P: 48 AR: 120 QRS: 147 QRSD: 110 T: 45 QT: 366 QTc: 442 Interpretive Statements SINUS RHYTHM POSSIBLE RIGHT VENTRICULAR HYPERTROPHY [SOME/ALL OF: PROMINENT R IN V1, LATE TRANSITION, RAD, GABRIEL, SSS] Compared to ECG 06/08/2024 15:01:47 Short AR interval no longer present Incomplete right bundle-branch block no longer present Electronically Signed On 06-10-2024 22:27:41 CDT by Bull Crain M.D. [id number] [id number]
[2024-06-08 17:24] LABS: Troponin 5 2HR 19.89 ng/L (0-15)
[2024-06-08 17:30] LABS: Troponin 5 2HR Delta -3.11 ABS# (0-10)
--- NOTE | 2024-06-08 18:08 | PM.HP ---
Providers/Chief Complaint Primary Care Provider: JOSEY De La Garza Chief Complaint: low 02 levels History of Present Illness Stanford Talavera Sr is a 68 year old male with a past medical history of hypertension, COPD, type 2 diabetes, who presents to [facility] for shortness of breath since . Patient is currently alert oriented x 3, following all commands, he tells me that since he has been experiencing increased shortness of breath, nonproductive cough, no fevers, no chills, shortness of breath with exertion. He denies any chest pain, no palpitations, no lightheadedness, no dizziness, no recent travel, no calf pain, no hemoptysis. Patient does not use oxygen at home, is active smoker since he was 13 years old, he is currently on 4 L, he is comfortable, discussed his influenza positivity, chest x-ray no focal pneumonia, discussed his acute hypoxic respiratory failure, elevated troponins. He denies any chest pain, no cardiovascular strain no history of CAD. Discussed doing a CT angiogram the chest to rule out pulmonary embolism as a cause for his acute hypoxic respiratory failure, however patient declines due to concerns for interactions with his diabetic medications metformin. Discussed risk of lactic acidosis, and contrast-induced nephropathy is fairly low, we will start him on fluids, and as he is here in the hospital we can watch lactic acidosis and contrast-induced nephropathy if it indeed does develop, after discussing risk and benefits of options, discussed morbidity and mortality associate with missed diagnosis such as a pulmonary embolism, or pneumonia, he voiced understanding, all questions answered, declined CT angiogram imaging. I also offered to do it 24 hours after his last dose of diabetic medications however he declined.. Review of Systems Const: Denies: fever(s), chills, fatigue or malaise Card: Denies: chest pain Resp: Reports: dyspnea and non-productive cough GI: Denies: abdominal pain Medications/Allergies Home Medications ?Medication ?Instructions ?Recorded ?Confirmed ?Last Taken ?Type aspirin 81 mg tablet,delayed 81 mg PO DAILY 07/13/19 06/08/24 06/07/24 History release chlorthalidone 25 mg tablet 25 mg PO DAILY 07/13/19 07/13/19 07/13/19 History cholecalciferol (vitamin D3) 25 25 mcg PO DAILY 07/13/19 06/08/24 06/07/24 History mcg (1,000 unit) chewable tablet (Vitamin D3) omega 8-iqz-vgs-fish oil 1,000 mg 1 cap PO DAILY 07/13/19 06/08/24 06/08/24 History (120 mg-180 mg) capsule (Fish Oil) Allergies Allergy/AdvReac Type Severity Reaction Status Date / Time No Known Allergies Allergy Verified 07/13/19 13:02 PFSH Acute PFSH: Medical History (Updated 06/08/24 @ 18:15 by Ruben Saini MD) History of diabetes mellitus No pertinent family history Hypertension Social History Smoking and tobacco/nicotine status: current every day tobacco/nicotine user Vitals/I&O/Wt Last Vital Signs Temp 98.0 F 06/08/24 14:52 Pulse 83 06/08/24 17:30 Resp 16 06/08/24 17:30 BP 115/69 06/08/24 17:30 Pulse Ox 90 06/08/24 17:30 O2 Del Method Nasal Cannula 06/08/24 17:15 O2 Flow Rate 4 06/08/24 17:15 Weight last 48 hrs Weight 130.635 kg Physical Exam Const: COMMON NORMALS: no acute distress and patient oriented x3 HENMT: COMMON NORMALS: normocephalic HEAD & SCALP: normocephalic Eye: COMMON NORMALS: Equal, round and reactive pupils present Resp: COMMON NORMALS: normal respiratory effort, No retractions and No use of accessory muscles AUSCULTATION: crackles and wheezes Cardio: COMMON NORMALS: regular rate, regular rhythm, S1 normal heart sound present and S2 normal heart sound present RATE: regular rate RHYTHM: regular rhythm HEART SOUNDS: S1 normal heart sound present and S2 normal heart sound present GI: COMMON NORMALS: Normal to inspection, nondistended, normoactive bowel sounds present, Soft to palpation and non-tender Extremity: COMMON NORMALS: no pedal edema Neuro: COMMON NORMALS: patient oriented x3, CN's II-XII intact bilaterally and moves all extremities Psych: COMMON NORMALS: mental status grossly normal Data 06/08/24 15:05 06/08/24 15:05 Micro: Microbiology 06/08/24 15:55 Blood Culture - Preliminary Blood SPECIMEN COLLECTED 06/08/24 15:52 Blood Culture - Preliminary Blood SPECIMEN COLLECTED A&P Assessment and plan (1) Acute respiratory failure with hypoxia: (2) Influenza: (3) COPD exacerbation: (4) NSTEMI (non-ST elevated myocardial infarction): Plan Acute hypoxic respiratory failure -Secondary to COPD exacerbation -Secondary to influenza, out of window for treatment with Tamiflu Plan -Solu-Medrol 40 mg IV every 8 hours -DuoNeb -Budesonide -Sputum culture -Blood culture -Monitor respiratory status closely -Type 2 diabetes mellitus, low-dose sliding scale -NSTEMI, serial EKGs, serial troponins, telemetry monitoring, no chest pain complaints -Full code -Lovenox DVT prophylaxis PDMP PDMP Reviewed: Not Reviewed Attestations Medical Necessity Statement*: Patient requires hospitalization for acute hypoxic respiratory failure secondary to influenza, COPD exacerbation, acute hypoxic requiring 4 L Diagnoses Acute respiratory failure with hypoxia J96.01 Influenza J11.1 COPD exacerbation J44.1 NSTEMI (non-ST elevated myocardial infarction) I21.4
[2024-06-08 18:43] LABS: D Dimer 0.93 ug/mLFEU (0-0.59)
[2024-06-08 18:46] LABS: Lactic Sepsis W/Reflex 1.4 mmol/L (0.5-2.2)
[2024-06-08 18:53] LABS: Procalcitonin 0.13 ng/mL (0-0.5)
--- NOTE | 2024-06-08 21:00 | ECG_ITS ---
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 Measurements Intervals [place] Rate: 80 P: 62 [place]: 152 QRS: 253 QRSD: 109 T: 67 QT: 378 QTc: 436 Interpretive Statements SINUS RHYTHM INDETERMINATE AXIS INCOMPLETE RIGHT BUNDLE BRANCH BLOCK [90+ ms QRS DURATION, TERMINAL R IN V1/V2, 40+ ms S IN I/aVL/V4/V5/V6] POSSIBLE RIGHT VENTRICULAR HYPERTROPHY [SOME/ALL OF: PROMINENT R IN V1, LATE TRANSITION, RAD, GABRIEL, SSS] Compared to ECG 06/08/2024 17:00:16 Indeterminate axis now present Incomplete right bundle-branch block now present Electronically Signed On 06-10-2024 22:27:06 CDT by Bull Crain M.D. [id number]
[2024-06-08 21:44] LABS: Glucose Point of Care 257 mg/dL (70-110)
[2024-06-08 22:03] LABS: Troponin 5 6HR 16.58 ng/L (0-15); Troponin 5 6HR Delta -6.42 ng/L (0-12)
[2024-06-08] MEDS: sodium chloride 0.9% 1,000 ML 75 ML IV (22:03)
[2024-06-08] MEDS: enoxaparin 40 mg/0.4 mL Syringe SUBCUT (22:03)
[2024-06-08] MEDS: pantoprazole 40 mg SDV IVP (22:03)
[2024-06-08] MEDS: budesonide 0.5 mg/2 mL Neb INHALATION (23:01)
[2024-06-09] VITALS (8 sets, daily range): BP systolic 105–133; BP diastolic 61–79; PULSE 62–77; RESP 18–19; TEMP 36.3–36.8; O2SAT 86–94
[2024-06-09] MEDS: methylPREDNISolone sod succ 40 mg/mL INJ IVP ×2 (05:35→14:10)
[2024-06-09 05:41] LABS: Basophils % 0.3 %; Lymphocytes # 0.8 10^3/uL (0.8-4.8); Lymphocytes % 25.2 %; Mean Corpuscular HGB Conc 31.4 g/dL (30-55); Mean Corpuscular Volume 86.1 fl (82-101); Mean Platelet Volume 11.1 fL (7.4-10.4); Monocytes # 0.4 10^3/uL (0.2-0.9); Monocytes % 12.7 %; Neutrophils # 1.92 10^3/uL (1.8-7.7); Neutrophils % 61.2 %; Nucleated Red Blood Cells % 0 %; Platelet Count 153 10^3/cmm (157-399); Red Blood Count 5.92 10^6/uL (3.85-5.65); Red Cell Distribution Width 14.1 % (12.1-15.1); White Blood Count 3.14 10^3/uL (3.29-11.43)
[2024-06-09 06:10] LABS: Chol HDL Ratio 6.81 mg/dL (1.0-5.00); Cholesterol 143 mg/dL (0-200); HDL Cholesterol 21 mg/dL (60-100); LDL Cholesterol Calculated 86 mg/dL (50-129); NT Pro B Type Natriuretic Pept 65 pg/mL (0-125); Triglycerides 181 mg/dL (0-150)
[2024-06-09 06:12] LABS: Alanine Aminotransferase 31 U/L (0-41); Albumin Level 3.2 g/dL (3.5-5.2); Alkaline Phosphatase 50 U/L (40-130); Anion Gap 14.5 (5-19); Aspartate Amino Transferase 41 U/L (0-40); Blood Urea Nitrogen 14 mg/dL (8-23); Calcium 8.4 mg/dL (8.5-10.5); Carbon Dioxide 26 mmol/L (22-29); Chloride 94 mmol/L (98-107); Creatinine Clr Calc Pharmacy 120.1125; Globulin 3.5 g/dL (1.3-4.6); Glomerular Filtration Rate 96.1 mL/min (90-130); Glucose 220 mg/dL (65-115); Osmolality Calculated 279 mOsm/kg (285-295); Potassium 3.5 mmol/L (3.5-5.1); Sodium 131 mmol/L (136-145); Thyroid Stimulating Hormone 0.56 uIU/mL (0.27-4.20); Total Bilirubin 0.4 mg/dL (0.15-1.2); Total Protein 6.7 g/dL (6.6-8.7)
[2024-06-09 06:20] LABS: Slide Review Slide Review Perform
[2024-06-09 06:57] LABS: Estmated Average Glucose 157; Hemoglobin A1C 7.1 % (4.0-6.0)
[2024-06-09 07:17] LABS: Glucose Point of Care 234 mg/dL (70-110)
[2024-06-09] MEDS: ipratropium-albuterol 3 mL Neb INHALATION ×2 (07:36→11:13)
[2024-06-09] MEDS: budesonide 0.5 mg/2 mL Neb INHALATION (07:36)
[2024-06-09] MEDS: aspirin 81 mg EC Tablet PO (08:14)
[2024-06-09] MEDS: insulin lispro 100 unit/1 mL SUBCUT ×2 (08:14→11:46)
[2024-06-09] MEDS: chlorthalidone 25 mg Tablet PO (08:14)
--- NOTE | 2024-06-09 09:32 | PC.CHAP ---
Pastoral Care Encounter/Spiritual Assessment Type of Contact [] Declined aviation ordnance officer visit [] Patient/Family/Request visit [] Outpatient visit [] Follow-up visit [] Physician referral [] Code/Alert [] Routine visit [] Staff referral [] Actively dying [] Patient sleeping [] Family support [] [] Out of room [] Palliative care [] [] Receiving care in room [] Pre-surgical visit [] Trauma [] Long length of stay [] ICU visit [x] Other:Contact precautions. No visit. Relational/Emotional Strength [] Patient feels connected with others/family/visitors/staff [] Distress [] Loneliness/isolation [] Abandonment Spirituality of Patient [] Person of Chary [] Attends Christianity of their Chary [] Believes in Prayer [] Reads Bible or Orthodox materials [] There are Spiritual issues to be addressed Sausage Meat Trimmer Interventions [] Prayer [] Active listening [] Non-anxious presence [] Spiritual/emotional support [] Crisis/trauma care [] Spiritual counseling [] Bereavement support [] Provided bereavement packet [] Provided Bible/devotional materials [] Provided toy/stuffed animal, coloring book to patient or family member [] Provided Communion [] Anointing/[place] [] Salvation [] Completed spiritual assessment [] Other: Impact on Illness or Injury [] Angry [] Fearful [] Anxious [] Often cries [] Exhaustion [] Unable to work [] Unable to attend mosque [] Unable to walk/stand [] Unable to read [] Unable to drive [] Unable to eat/drink [] Unable to sleep [] Unable to be with family [] Patient intubated [] Other: Summary Time spent with patient
--- NOTE | 2024-06-09 11:00 | PM.DCS ---
Discharge Providers Date of Admission: 06/08/24 18:33 Date of Discharge: June 09, 2024 Attending Provider at Admission: Ruben Saini MD Attending Provider at Discharge: Ruben Saini MD Primary Care Provider: JOSEY De La Garza Diagnoses at Discharge Discharge Diagnosis (1) Acute respiratory failure with hypoxia: Status: Acute (2) Influenza: Status: Acute (3) COPD exacerbation: Status: Acute (4) NSTEMI (non-ST elevated myocardial infarction): Status: Acute Reason for Visit Reason for Visit: low 02 levels Hospital Course Hospital Course Stanford Talavera Sr is a 68 year old male with a past medical history of hypertension, COPD, type 2 diabetes, who presents to [facility] for shortness of breath since . Patient is currently alert oriented x 3, following all commands, he tells me that since he has been experiencing increased shortness of breath, nonproductive cough, no fevers, no chills, shortness of breath with exertion. He denies any chest pain, no palpitations, no lightheadedness, no dizziness, no recent travel, no calf pain, no hemoptysis. Patient does not use oxygen at home, is active smoker since he was 13 years old, he is currently on 4 L, he is comfortable, discussed his influenza positivity, chest x-ray no focal pneumonia, discussed his acute hypoxic respiratory failure, elevated troponins. He denies any chest pain, no cardiovascular strain no history of CAD. Discussed doing a CT angiogram the chest to rule out pulmonary embolism as a cause for his acute hypoxic respiratory failure, however patient declines due to concerns for interactions with his diabetic medications metformin. Discussed risk of lactic acidosis, and contrast-induced nephropathy is fairly low, we will start him on fluids, and as he is here in the hospital we can watch lactic acidosis and contrast-induced nephropathy if it indeed does develop, after discussing risk and benefits of options, discussed morbidity and mortality associate with missed diagnosis such as a pulmonary embolism, or pneumonia, he voiced understanding, all questions answered, declined CT angiogram imaging. I also offered to do it 24 hours after his last dose of diabetic medications however he declined. Patient was admitted to [facility] for acute hypoxic respiratory failure secondary to COPD exacerbation, influenza, received steroid therapy, oxygen therapy, inhaler therapy, and monitoring in the hospital. On 06/09/2024 patient clinically feels better, however he is needing 4 L which is a new oxygen requirement, he does have wheezing in all lung conti. I have strongly recommended for Stanford to spend another night in the hospital continued medical therapy, discussed morbidity and mortality, he voiced understanding, all questions answered, declined further inpatient stay. He will be discharged home with prednisone burst, albuterol, Advair, doxycycline, instructions to stop smoking, with a close follow-up with primary care provider as outpatient. Physical Exam Const: COMMON NORMALS: no acute distress and patient oriented x3 Resp: COMMON NORMALS: normal respiratory effort, No retractions and No use of accessory muscles AUSCULTATION: wheezes Cardio: COMMON NORMALS: regular rate, regular rhythm, S1 normal heart sound present and S2 normal heart sound present RATE: regular rate RHYTHM: regular rhythm HEART SOUNDS: S1 normal heart sound present and S2 normal heart sound present GI: COMMON NORMALS: Normal to inspection, nondistended, normoactive bowel sounds present and non-tender Extremity: COMMON NORMALS: no pedal edema Neuro: COMMON NORMALS: patient oriented x3 Psych: COMMON NORMALS: mental status grossly normal Discharge Data Studies Completed and Pending Completed Studies During Hospitalization Category Date Time Status XR chest 1V portable [id number] Stat Exams 06/08/24 15:00 Completed Pending at discharge Category Date Time Status Blood Culture Stat Lab 06/08/24 15:55 Results Complete Blood Count w/Auto AM LABS Lab 06/10/24 04:00 Ordered Complete Blood Count w/Auto AM LABS Lab 06/11/24 04:00 Ordered Comprehensive Metabolic Panel AM LABS Lab 06/10/24 04:00 Ordered Comprehensive Metabolic Panel AM LABS Lab 06/11/24 04:00 Ordered Venous Blood Gas Stat Lab 06/08/24 15:52 Results Radiology Impressions Chest X-Ray 06/08/24 15:00 IMPRESSION: 1. Chronic bibasilar changes. No acute process is suspected. 2. Stable appearing 13 mm nodule in the RIGHT lower lung zone. Laboratory Results WBC 3.14 10^3/uL (3.29-11.43) L 06/09/24 05:04 RBC 5.92 10^6/uL (3.85-5.65) H 06/09/24 05:04 Hgb 16.00 g/dL (11.27-16.99) 06/09/24 05:04 Hct 51.0 % (37-53) 06/09/24 05:04 MCV 86.1 fl (82-101) 06/09/24 05:04 MCH 27.0 pg (27-33) 06/09/24 05:04 MCHC 31.4 g/dL (30-55) 06/09/24 05:04 RDW 14.1 % (12.1-15.1) 06/09/24 05:04 Plt Count 153 10^3/cmm (157-399) L 06/09/24 05:04 MPV 11.1 fL (7.4-10.4) H 06/09/24 05:04 Neut % (Auto) 61.2 % 06/09/24 05:04 Lymph % (Auto) 25.2 % 06/09/24 05:04 Payette % (Auto) 12.7 % 06/09/24 05:04 Eos % (Auto) 0.0 % 06/09/24 05:04 Baso % (Auto) 0.3 % 06/09/24 05:04 Neut # (Auto) 1.92 10^3/uL (1.8-7.7) 06/09/24 05:04 Lymph # (Auto) 0.8 10^3/uL (0.8-4.8) 06/09/24 05:04 Payette # (Auto) 0.4 10^3/uL (0.2-0.9) 06/09/24 05:04 Eos # (Auto) 0.0 10^3/uL (0.0-0.8) 06/09/24 05:04 Baso # (Auto) 0.0 10^3/uL (0.0-0.1) 06/09/24 05:04 Nucleated RBC % (auto) 0 % 06/09/24 05:04 Nucleated RBCs # 0.0 /100WBC 06/09/24 05:04 PT 13.10 SECONDS (12.1-14.9) 06/08/24 15:05 INR 0.93 (0.8-1.2) 06/08/24 15:05 D-Dimer 0.93 ug/mLFEU (0-0.59) H 06/08/24 15:05 Specimen Type Venous 06/08/24 15:52 Mahendra Test N/a 06/08/24 15:52 VBG pH 7.45 (7.32-7.42) H 06/08/24 15:52 VBG pCO2 46.5 mmHg (41-51) 06/08/24 15:52 VBG pO2 101.0 mmHg (25-40) H 06/08/24 15:52 VBG HCO3 32.2 mmol/L (24-28) H 06/08/24 15:52 VBG Base Excess 6.9 mmol/L (-3.0-3.0) H 06/08/24 15:52 VBG Hematocrit 51.4 % (42-52) 06/08/24 15:52 O2 Delivery Device Nc 06/08/24 15:52 O2 Liters/Min 4.0 % 06/08/24 15:52 Renal Medicine Physician ID Walci 06/08/24 15:52 Sodium 131 mmol/L (136-145) L 06/09/24 05:04 Potassium 3.5 mmol/L (3.5-5.1) 06/09/24 05:04 Chloride 94 mmol/L (98-107) L 06/09/24 05:04 Carbon Dioxide 26 mmol/L (22-29) 06/09/24 05:04 Anion Gap 14.5 (5-19) 06/09/24 05:04 BUN 14 mg/dL (8-23) 06/09/24 05:04 Creatinine 0.8 mg/dL (0.7-1.2) 06/09/24 05:04 GFR Calculation 96.1 mL/min (90-130) 06/09/24 05:04 Glucose 220 mg/dL (65-115) H 06/09/24 05:04 POC Glucose 234 mg/dL (70-110) H 06/09/24 06:33 Estimat Average Glucose 157 06/09/24 05:04 Hemoglobin A1c 7.1 % (4.0-6.0) H 06/09/24 05:04 Calculated Osmolality 279 mOsm/kg (285-295) L 06/09/24 05:04 Lactic Acid 1.4 mmol/L (0.5-2.2) 06/08/24 15:05 Calcium 8.4 mg/dL (8.5-10.5) L 06/09/24 05:04 Total Bilirubin 0.4 mg/dL (0.15-1.2) 06/09/24 05:04 AST 41 U/L (0-40) H 06/09/24 05:04 ALT 31 U/L (0-41) 06/09/24 05:04 Alkaline Phosphatase 50 U/L (40-130) 06/09/24 05:04 Troponin T Baseline 23 ng/L (0-15) H 06/08/24 15:05 Troponin T 120 Minute 19.89 ng/L (0-15) H 06/08/24 16:58 Delta Troponin T -3.11 ABS# (0-10) L 06/08/24 16:58 Troponin T Hi Sens 6Hr 16.58 ng/L (0-15) H 06/08/24 21:21 Troponin T Hi Sens 6Hr Delta -6.42 ng/L (0-12) L 06/08/24 21:21 NT-Pro-B Natriuret Pep 65 pg/mL (0-125) 06/09/24 05:04 Total Protein 6.7 g/dL (6.6-8.7) 06/09/24 05:04 Albumin 3.2 g/dL (3.5-5.2) L 06/09/24 05:04 Globulin 3.5 g/dL (1.3-4.6) 06/09/24 05:04 Triglycerides 181 mg/dL (0-150) H 06/09/24 05:04 Cholesterol 143 mg/dL (0-200) 06/09/24 05:04 LDL Cholesterol, Calc 86 mg/dL (50-129) 06/09/24 05:04 HDL Cholesterol 21 mg/dL (60-100) L 06/09/24 05:04 LDL/HDL Ratio 4.10 RATIO (0.00-3.22) H 06/09/24 05:04 Cholesterol/HDL Ratio 6.81 mg/dL (1.0-5.00) H 06/09/24 05:04 Procalcitonin 0.13 ng/mL (0-0.5) 06/08/24 15:05 TSH 0.56 uIU/mL (0.27-4.20) 06/09/24 05:04 Influenza A (PCR) Positive (Negative) 06/08/24 15:25 Influenza Type B (PCR) Negative (Negative) 06/08/24 15:25 RSV (PCR) Negative (Negative) 06/08/24 15:25 SARS-CoV-2 (PCR) Negative (Negative) 06/08/24 15:25 Vitals Last Vital Signs Temp 97.5 F L 06/09/24 08:00 Pulse 70 06/09/24 08:00 Resp 19 H 06/09/24 08:00 BP 127/72 06/09/24 08:00 Pulse Ox 86 L 06/09/24 10:31 O2 Del Method Nasal Cannula 06/09/24 08:00 O2 Flow Rate 4 06/09/24 10:31 Discharge Plan Discharge Patient Disposition: Home Condition: Stable Prescriptions: New albuterol sulfate [Ventolin HFA] 90 mcg/actuation HFA aerosol inhaler 1 inh inhalation Q6H PRN (Reason: shortness of breath or wheezing) Qty: 8.5 0RF fluticasone propion-salmeterol [Advair Diskus] 100-50 mcg/dose blister with device 1 inh inhalation BID Qty: 60 0RF doxycycline hyclate 100 mg tablet 100 mg PO BID 5 Days Qty: 10 0RF prednisone 20 mg tablet 20 mg PO BID 5 Days Qty: 10 0RF insulin aspart U-100 [Novolog FlexPen U-100 Insulin] 100 unit/mL (3 mL) insulin pen See Rx Instructions .ROUTE .COMPLEX Qty: 15 0RF Rx Instructions: Inject, subcut, 3 times daily after meals, based on low-dose sliding scale provided (DME) glucometer testing kit See Rx Instructions .Route .MEDSUPPLY Qty: 1 0RF Rx Instructions: Glucometer testing kit (DME) lancets [facility] See Rx Instructions .Route Qty: 200 0RF Rx Instructions: check bs tid (DME) strips See Rx Instructions .Route .MEDSUPPLY Qty: 200 0RF Rx Instructions: check bs TID Continued aspirin 81 mg Tablet,Delayed Release (Dr/Ec) 81 mg PO DAILY cholecalciferol (vitamin D3) [Vitamin D3] 25 mcg (1,000 unit) Tablet,Chewable 25 mcg PO DAILY omega 6-nxl-yjy-fish oil [Fish Oil] 1,000 mg (120 mg-180 mg) Capsule 1 cap PO DAILY No Action metformin 500 mg Tablet Extended Release 24 Hr 500 mg PO DAILY montelukast 10 mg Tablet 10 mg PO DAILY Discharge Orders: Discharge Order (Routine); Ordered 06/09/24 Ordered By: Ruben Saini Other Ambulatory Orders: DME: Oxygen (Order) Location: None Selected Ordered By: Ruben Saini Referrals: Nerissa Ryder FNP [Primary Care Provider] - 06/10/24 10:00 am Hsuam Roman MD, MBBS, MPH [Referring] - 4-7 days (We have notified your physician's clinic of the need for a follow-up appointment to be scheduled. If you have not heard from them within the next 2 business days, please call them directly. ) Discharge Diet: Cardiac Discharge Activity: Resume usual activity Patient Instructions: How to Stop Smoking (DC), Opioid Safety Activity Restrictions/Additional Instructions: -Please monitor your blood sugars closely -Monitor your blood sugars 3 times daily as after meals -Please record your blood sugars, and a blood sugar log -For your NovoLog -Please inject blood sugar after meals based on sliding scale provided -Do not inject insulin if you do not eat as hypoglycemia kills -This is a NovoLog sliding scale -Insulin sliding ?fingerstick? Insulin ?141-180?0 units/sq 181-220?2 units/sq ?221-260?4 units/sq ?261-300 6 units/sq ?301-350?8 units/sq ?351-400 10 units/sq ?401-450?12 units/sq >450? 14units/sq -If your blood sugar is greater than 500 go to the emergency room -If your blood sugar is less than 60 or at anytime you feel lightheaded or dizzy or diaphoretic or have chest palpitations check your blood sugar, and eat a hard candy or drink orange juice and go immediately to the emergency room -Remember hypoglycemia kills, so if his blood sugar is less than 60 we have to increase it by taking in a sugary meal such as a hard candy or orange juice and go to the emergency room -If you have any questions please call us where here to help Discharge Attestations Time Spent in Discharge Care*: greater than 30 min Quality Metrics Clinical Quality Measures [ No reported AMI, CVA or VTE this stay] Coding Level of Care Code 72310 Total time (in minutes) for Discharge: 45 Diagnoses Acute respiratory failure with hypoxia J96.01 Influenza J11.1 COPD exacerbation J44.1 NSTEMI (non-ST elevated myocardial infarction) I21.4
[2024-06-09 11:41] LABS: Glucose Point of Care 248 mg/dL (70-110)
== END 2024-06-09 14:57 | disposition home or self-care (01) | DRG 189 ==
LOC: ER 18:28 → MEDSURG 18:34
PROVIDERS: Admitting Provider Family Medicine; Emergency Provider Emergency Medicine; PCP Nurse Practitioner; Visit Provider Family Medicine
DX: J96.01 Acute respiratory failure with hypoxia (principal); I21.4 Non-ST elevation (NSTEMI) myocardial infarction; J44.1 Chronic obstructive pulmonary disease with (acute) exacerbation; J11.1 Influenza due to unidentified influenza virus with other respiratory manifestations; E11.9 Type 2 diabetes mellitus without complications; F17.200 Nicotine dependence, unspecified, uncomplicated; Z53.29 Procedure and treatment not carried out because of patient's decision for other reasons; Z79.82 Long term (current) use of aspirin; Z79.84 Long term (current) use of oral hypoglycemic drugs
CPT/HCPCS: 36415; 36416; 71045; 80053; 80061; 82803; 82962; 83036; 83605; 83880; 84145; 84443; 84484; 85025; 85378; 85610; 87040; 87637; 93005; 94640; 94664; 94760; 96372; 96374; 99285; J1650; J1815; J2470; J2919; J7030; J7626; J9999